=== PATIENT | female | born 1975 | race Caucasian/White ===

== ENCOUNTER 2018-05-18 14:25 | Emergency (ER) | payer OTHER ==
[~2018-05-18] VITALS: Ht 147.3 cm; Wt 55.9 kg
[2018-05-18] MEDS ORDERED: PERCOCET 5/31 TABLET PO (15:55)
[2018-05-18 16:07] VITALS: BP 123/82
== END 2018-05-18 16:07 | disposition home or self-care (01) ==
LOC: EME 14:25
DX: S20.219A Contusion of unspecified front wall of thorax, initial encounter (principal); W50.0XXA Accidental hit or strike by another person, initial encounter; Y93.44 Activity, trampolining
CPT/HCPCS: 71046; 93005; 99281; 99283